=== PATIENT | female | born 1980 | race Caucasian/White ===

== ENCOUNTER 2017-01-27 20:33 | Emergency (ER) | payer OTHER ==
[~2017-01-27] VITALS: Ht 154.9 cm; Wt 81.8 kg
[~2017-01-27 20:33] MED LIST: CLIN300C3 PO; IBUP-2070 PO; INSLAN SQ; INSNOV SQ; LEVO200 PO; LIRA0.6P SQ; METF500T4 PO
[2017-01-27] MEDS ORDERED: LEVO200 PO (20:41)
[2017-01-27] MEDS ORDERED: INSNOV SQ (20:41)
[2017-01-27] MEDS ORDERED: INSLAN SQ (20:41)
[2017-01-27 20:47] LABS: GLUCOSE,POINT OF CARE 267 MG/DL (70-110)
[2017-01-27] MEDS ORDERED: ACETAMINOPHEN/CODEINE 300-30 MG TABLET PO ONE (21:00)
[2017-01-27 22:12] VITALS: BP 138/87
== END 2017-01-27 22:13 | disposition home or self-care (01) ==
LOC: EMS 20:34
DX: S93.401A Sprain of unspecified ligament of right ankle, initial encounter (principal); J45.909 Unspecified asthma, uncomplicated; E11.9 Type 2 diabetes mellitus without complications; E03.9 Hypothyroidism, unspecified; Z79.4 Long term (current) use of insulin; X50.0XXA Overexertion from strenuous movement or load, initial encounter; W01.0XXA Fall on same level from slipping, tripping and stumbling without subsequent striking against object, initial encounter; Y93.89 Activity, other specified; Y92.89 Other specified places as the place of occurrence of the external cause; Y99.8 Other external cause status
CPT/HCPCS: 29515; 82962; 99284

== ENCOUNTER 2017-02-22 18:24 | Emergency (ER) | payer MEDICAID, OTHER ==
[~2017-02-22] VITALS: Ht 154.9 cm; Wt 80.0 kg
[~2017-02-22 18:24] MED LIST changes: -CLIN300C3 PO; -IBUP-2070 PO
[2017-02-22 18:42] LABS: GLUCOSE,POINT OF CARE 273 MG/DL (70-110)
[2017-02-22 18:59] LABS: BASOPHILS % (AUTO) 0.6 % (0.0-2.0); EOSINOPHILS % (AUTO) 2.1 % (1.0-6.0); HEMATOCRIT 40.2 % (36-46); HEMOGLOBIN 13.7 g/dL (12.0-16.0); LYMPHOCYTES # (AUTO) 3.2 K/uL (1.0-4.8); LYMPHOCYTES % (AUTO) 31.6 % (22.0-44.0); MEAN CORPUSCULAR HEMOGLOBIN 28.2 pg (26.0-34.0); MEAN CORPUSCULAR HGB CONC 34.1 G/dL (31.0-37.0); MEAN CORPUSCULAR VOLUME 83 fL (80-100); MONOCYTES # (AUTO) 0.8 K/uL (0.1-1.0); MONOCYTES % (AUTO) 7.8 % (2.0-9.0); NEUTROPHILS # (AUTO) 5.9 K/uL (1.8-7.7); NEUTROPHILS % (AUTO) 57.9 % (40.0-70.0); PLATELET COUNT (AUTO) 232 K/uL (150-450); RED BLOOD CELL COUNT(AUTO) 4.86 MIL/uL (4.00-5.20); RED CELL DISTRIBUTION WIDTH 13.8 % (11.5-14.5); WHITE BLOOD COUNT (AUTO) 10.3 K/uL (4.5-11.0)
[2017-02-22 19:07] LABS: ANION GAP 9 mmol/L (8-16); CARBON DIOXIDE 27 mmol/L (22-29); CHLORIDE 100 mmol/L (98-107); CREATININE 0.75 mg/dL (0.60-1.30); GLOMERULAR FILTR. RATE CALC > 60 mL/min (>60); POTASSIUM 3.9 mmol/L (3.5-5.1); SODIUM SERUM 136 mmol/L (136-145); UREA NITROGEN, BLOOD 15 mg/dL (7-18)
[2017-02-22 19:13] LABS: ALANINE AMINOTRANSFERASE 18 U/L (12-78); ALBUMIN 3.3 g/dL (3.4-5.0); ASPARTATE AMINOTRANSFERASE 11 U/L (15-37); BILIRUBIN,TOTAL 0.2 mg/dL (0.1-1.0)
[2017-02-22 19:23] LABS: APPEARANCE,URINE TURBID (CLEAR); GLUCOSE, URINE (UA) >=1000 mg/dL (NEGATIVE); KETONES,URINE NEGATIVE (NEGATIVE); LEUKOCYTE ESTERASE ,URINE MODERATE (NEGATIVE); OCCULT BLOOD,URINE LARGE (NEGATIVE); PROTEIN,URINE SEE CONFIRM (NEGATIVE)
[2017-02-22] MEDS ORDERED: CEPHALEXIN MONOHYDRATE 500 MG CAPSULE PO ONE (19:30)
[2017-02-22] MEDS ORDERED: IBUPROFEN 600 MG TABLET PO ONE (19:30)
[2017-02-22] MEDS ORDERED: LEVO112T4 PO (19:30)
[2017-02-22] MEDS ORDERED: LEVO100 PO (19:30)
[2017-02-22 19:43] LABS: ADD UA MICROSCOPIC YES
[2017-02-22 19:44] LABS: SULFOSALICYLIC ACID,URINE 3+ (Negative)
[2017-02-22 19:45] LABS: WBC,URINE >100 /HPF (0-5)
[2017-02-22 19:46] LABS: SQUAMOUS EPITHELIAL CELL,UR Few /LPF (None Seen)
[2017-02-22 22:57] VITALS: BP 122/69
== END 2017-02-22 22:59 | disposition home or self-care (01) ==
LOC: EMS 18:25
DX: N39.0 Urinary tract infection, site not specified (principal); R81 Glycosuria; J45.909 Unspecified asthma, uncomplicated; E11.9 Type 2 diabetes mellitus without complications; E03.9 Hypothyroidism, unspecified; Z79.4 Long term (current) use of insulin
CPT/HCPCS: 74176; 82962; 87086; 99285

== ENCOUNTER 2017-08-05 19:35 | Emergency (ER) | payer MEDICAID, OTHER ==
[~2017-08-05] VITALS: Ht 154.9 cm; Wt 84.0 kg
[~2017-08-05 19:35] MED LIST changes: +LEVO100 PO; +LEVO112T4 PO; -LEVO200 PO; -METF500T4 PO; +METF500T6 PO
[2017-08-05] MEDS ORDERED: LISI-660 PO (19:48)
[2017-08-05 19:58] LABS: GLUCOSE,POINT OF CARE 225 MG/DL (70-110)
[2017-08-05] MEDS ORDERED: PERTUSS(ACELL),DIPH,TET VAC/PF 0.5 ML VIAL IM ONE (20:45)
[2017-08-05] MEDS ORDERED: BACITRACIN 0.9 GM PACKET OINTMENT TP ONE (20:45)
[2017-08-05 23:01] VITALS: BP 132/84
== END 2017-08-05 23:24 | disposition home or self-care (01) ==
LOC: EMS 19:36
DX: S93.401A Sprain of unspecified ligament of right ankle, initial encounter (principal); R03.0 Elevated blood-pressure reading, without diagnosis of hypertension; J45.909 Unspecified asthma, uncomplicated; E11.9 Type 2 diabetes mellitus without complications; E03.9 Hypothyroidism, unspecified; Z79.4 Long term (current) use of insulin; X58.XXXA Exposure to other specified factors, initial encounter; Y93.01 Activity, walking, marching and hiking; Y92.89 Other specified places as the place of occurrence of the external cause; Y99.8 Other external cause status
CPT/HCPCS: 90471; 90715; 99284

== ENCOUNTER 2021-02-11 16:28 | Emergency (ER) | payer OTHER ==
[~2021-02-11] VITALS: Ht 154.9 cm; Wt 75.0 kg
[~2021-02-11 16:28] MED LIST changes: +CIPR-278 PO; +DULA3PEN SQ; -LEVO100 PO; -LIRA0.6P SQ; +LISI-893 PO; +METF-1211 PO; -METF500T6 PO; +METR500 PO; +PROP10TA73 PO
[2021-02-11 17:40] LABS: BASOPHILS % (AUTO) 0.8 % (0.0-2.0); EOSINOPHILS % (AUTO) 2.8 % (1.0-6.0); HEMATOCRIT 40.2 % (36-46); HEMOGLOBIN 13.9 g/dL (12.0-16.0); LYMPHOCYTES # (AUTO) 2.8 K/uL (1.0-4.8); LYMPHOCYTES % (AUTO) 32.8 % (22.0-44.0); MEAN CORPUSCULAR HEMOGLOBIN 28.9 pg (26.0-34.0); MEAN CORPUSCULAR HGB CONC 34.5 G/dL (31.0-37.0); MEAN CORPUSCULAR VOLUME 84 fL (80-100); MONOCYTES # (AUTO) 0.6 K/uL (0.1-1.0); MONOCYTES % (AUTO) 6.6 % (2.0-9.0); NEUTROPHILS # (AUTO) 4.9 K/uL (1.8-7.7); PLATELET COUNT (AUTO) 244 K/uL (150-450); RED BLOOD CELL COUNT(AUTO) 4.79 MIL/uL (4.00-5.20); RED CELL DISTRIBUTION WIDTH 13.5 % (11.5-14.5)
[2021-02-11] MEDS ORDERED: IPRATROPIUM BROMIDE 0.5 MG/2.5 ML NEB SOLUTION NEB ONE (17:45)
[2021-02-11] MEDS ORDERED: ALBUTEROL SULFATE 2.5 MG/0.5 ML NEB SOLUTION NEB ONE (17:45)
[2021-02-11 17:52] LABS: INR 0.9 (0.9-1.1); PROTHROMBIN TIME 9.7 SEC (9.4-11.6)
[2021-02-11 17:54] LABS: ALANINE AMINOTRANSFERASE 21 U/L (12-78); ALBUMIN 3.1 g/dL (3.4-5.0); ALKALINE PHOSPHATASE 153 U/L (46-116); ANION GAP 12 mmol/L (8-16); ASPARTATE AMINOTRANSFERASE 12 U/L (15-37); BILIRUBIN,TOTAL 0.2 mg/dL (0.1-1.0); CALCIUM, TOTAL 8.4 mg/dL (8.8-10.5); CARBON DIOXIDE 24 mmol/L (22-29); CHLORIDE 102 mmol/L (98-107); CREATININE 0.88 mg/dL (0.60-1.30); GLOMERULAR FILTR. RATE CALC > 60 mL/min (>60); POTASSIUM 3.9 mmol/L (3.5-5.1); SODIUM SERUM 138 mmol/L (136-145); TOTAL PROTEIN, SERUM 7.4 g/dL (6.4-8.2); UREA NITROGEN, BLOOD 16 mg/dL (7-18)
[2021-02-11 17:55] LABS: GLUCOSE,RANDOM 408 mg/dL (70-110)
[2021-02-11 18:01] LABS: B-TYPE NATRIURETIC PEPTIDE 10 pg/mL (0-100)
[2021-02-11] MEDS ORDERED: SODIUM CHLORIDE 0.9% 1,000 ML IV ONE (18:45)
[2021-02-11] MEDS ORDERED: INSULIN REGULAR, HUMAN 100 UNITS/ML IVP ONE (18:45)
[2021-02-11] MEDS ORDERED: ASPIRIN 81 MG CHEWABLE TABLET PO ONE (19:45)
[2021-02-11 19:47] LABS: COVID AG,FIA SOURCE NASOPHARYNGEAL
[2021-02-11 19:57] LABS: GLUCOMETER DEV NAME(LOC) ERT.5; GLUCOSE,POINT OF CARE 254 MG/DL (70-110)
[2021-02-11 20:38] VITALS: BP 125/79
== END 2021-02-11 20:38 | disposition home or self-care (01) ==
LOC: EMS 16:28
DX: J45.901 Unspecified asthma with (acute) exacerbation (principal); E11.65 Type 2 diabetes mellitus with hyperglycemia; I10 Essential (primary) hypertension; E03.9 Hypothyroidism, unspecified; Z20.822 Contact with and (suspected) exposure to COVID-19; Z85.850 Personal history of malignant neoplasm of thyroid; Z79.4 Long term (current) use of insulin; Z79.84 Long term (current) use of oral hypoglycemic drugs
CPT/HCPCS: 36415; 71045; 80053; 82962; 83880; 84484; 85025; 85610; 85730; 87426; 93005; 94060; 94640; 96361; 96374; 99285; J1815; J7030; J7613

== ENCOUNTER 2021-03-27 21:08 | Emergency (ER) | payer OTHER ==
[~2021-03-27] VITALS: Ht 160 cm; Wt 79.1 kg
[2021-03-27 21:42] VITALS: BP 114/74
[2021-03-27] MEDS ORDERED: INSLAN SQ (22:10)
[2021-03-27 22:50] LABS: COVID AG,FIA SOURCE NASOPHARYNGEAL
[2021-03-27] MEDS ORDERED: GuaiFENesin/D-METHORPHAN [SUGAR-FREE] 200-20MG/10 ML SYRUP UDCUP PO ONE (23:30)
[2021-03-27] MEDS ORDERED: IBUPROFEN 600 MG TABLET PO ONE (23:30)
== END 2021-03-28 00:12 | disposition home or self-care (01) ==
LOC: EMS 21:28
DX: U07.1 COVID-19 (principal); E11.8 Type 2 diabetes mellitus with unspecified complications; I10 Essential (primary) hypertension; E03.9 Hypothyroidism, unspecified; Z90.49 Acquired absence of other specified parts of digestive tract; Z90.89 Acquired absence of other organs; Z90.710 Acquired absence of both cervix and uterus; Z98.51 Tubal ligation status; Z79.4 Long term (current) use of insulin; Z79.84 Long term (current) use of oral hypoglycemic drugs
CPT/HCPCS: 87426; 99283; U0003

== ENCOUNTER 2021-03-31 08:35 | Emergency (ER) | payer OTHER ==
[~2021-03-31] VITALS: Ht 154.9 cm; Wt 74.5 kg
[2021-03-31] MEDS ORDERED: ACETAMINOPHEN 500 MG TABLET PO ONE (10:00)
[2021-03-31] MEDS ORDERED: KETOROLAC TROMETHAMINE 30 MG/ML VIAL IM ONE (10:00)
[2021-03-31] MEDS ORDERED: AZITHROMYCIN 500 MG TABLET PO ONE (10:30)
[2021-03-31 11:06] LABS: BASOPHILS % (AUTO) 0.5 % (0.0-2.0); EOSINOPHILS % (AUTO) 3.1 % (1.0-6.0); HEMOGLOBIN 13.8 g/dL (12.0-16.0); LYMPHOCYTES # (AUTO) 2.1 K/uL (1.0-4.8); LYMPHOCYTES % (AUTO) 41.3 % (22.0-44.0); MEAN CORPUSCULAR HEMOGLOBIN 28.5 pg (26.0-34.0); MEAN CORPUSCULAR HGB CONC 34.4 G/dL (31.0-37.0); MEAN CORPUSCULAR VOLUME 83 fL (80-100); MONOCYTES # (AUTO) 0.4 K/uL (0.1-1.0); MONOCYTES % (AUTO) 7.7 % (2.0-9.0); NEUTROPHILS # (AUTO) 2.4 K/uL (1.8-7.7); NEUTROPHILS % (AUTO) 47.4 % (40.0-70.0); PLATELET COUNT (AUTO) 193 K/uL (150-450); RED BLOOD CELL COUNT(AUTO) 4.83 MIL/uL (4.00-5.20); RED CELL DISTRIBUTION WIDTH 13.6 % (11.5-14.5)
[2021-03-31 11:13] LABS: ANION GAP 11 mmol/L (8-16); CALCIUM, TOTAL 8.6 mg/dL (8.8-10.5); CARBON DIOXIDE 25 mmol/L (22-29); CHLORIDE 102 mmol/L (98-107); CREATININE 0.54 mg/dL (0.60-1.30); GLOMERULAR FILTR. RATE CALC > 60 mL/min (>60); GLUCOSE,RANDOM 282 mg/dL (70-110); POTASSIUM 4.1 mmol/L (3.5-5.1); SODIUM SERUM 138 mmol/L (136-145); UREA NITROGEN, BLOOD 19 mg/dL (7-18)
[2021-03-31 11:26] LABS: ALANINE AMINOTRANSFERASE 26 U/L (12-78); ALBUMIN 3.2 g/dL (3.4-5.0); ALKALINE PHOSPHATASE 126 U/L (46-116); ASPARTATE AMINOTRANSFERASE 10 U/L (15-37); B-TYPE NATRIURETIC PEPTIDE < 5 pg/mL (0-100); BILIRUBIN,TOTAL 0.2 mg/dL (0.1-1.0); CREATINE KINASE, TOTAL ONLY 34 U/L (26-192); HCG,QUANTITATIVE < 1 mIU/mL (0-6); TOTAL PROTEIN, SERUM 7.6 g/dL (6.4-8.2)
[2021-03-31 12:12] VITALS: BP 115/76
== END 2021-03-31 12:17 | disposition home or self-care (01) ==
LOC: EMS 08:37
DX: R07.89 Other chest pain (principal); E11.9 Type 2 diabetes mellitus without complications; I10 Essential (primary) hypertension; Z79.4 Long term (current) use of insulin; Z79.84 Long term (current) use of oral hypoglycemic drugs
CPT/HCPCS: 36415; 71045; 80053; 82550; 83880; 84484; 84702; 85025; 96372; 99284; J1885; Q9967

== ENCOUNTER 2021-08-08 22:50 | Emergency (ER) | payer OTHER ==
[~2021-08-08] VITALS: Ht 154.9 cm; Wt 72.7 kg
[2021-08-08 23:22] LABS: BASOPHILS % (AUTO) 0.7 % (0.0-2.0); EOSINOPHILS % (AUTO) 2.5 % (1.0-6.0); HEMOGLOBIN 13.3 g/dL (12.0-16.0); LYMPHOCYTES # (AUTO) 2.8 K/uL (1.0-4.8); LYMPHOCYTES % (AUTO) 35.7 % (22.0-44.0); MEAN CORPUSCULAR HEMOGLOBIN 26.8 pg (26.0-34.0); MEAN CORPUSCULAR HGB CONC 33.3 G/dL (31.0-37.0); MEAN CORPUSCULAR VOLUME 81 fL (80-100); MONOCYTES # (AUTO) 0.5 K/uL (0.1-1.0); NEUTROPHILS # (AUTO) 4.4 K/uL (1.8-7.7); NEUTROPHILS % (AUTO) 55.1 % (40.0-70.0); PLATELET COUNT (AUTO) 222 K/uL (150-450); RED BLOOD CELL COUNT(AUTO) 4.97 MIL/uL (4.00-5.20); RED CELL DISTRIBUTION WIDTH 14.1 % (11.5-14.5)
[2021-08-08 23:32] LABS: ANION GAP 8 mmol/L (8-16); CALCIUM, TOTAL 9.2 mg/dL (8.8-10.5); CARBON DIOXIDE 28 mmol/L (22-29); CHLORIDE 100 mmol/L (98-107); CREATININE 0.54 mg/dL (0.60-1.30); GLUCOSE,RANDOM 314 mg/dL (70-110); POTASSIUM 3.8 mmol/L (3.5-5.1); SODIUM SERUM 136 mmol/L (136-145); UREA NITROGEN, BLOOD 12 mg/dL (7-18)
[2021-08-08 23:35] LABS: GLOMERULAR FILTR. RATE CALC > 60 mL/min (>60)
[2021-08-08 23:39] LABS: ALANINE AMINOTRANSFERASE 23 U/L (12-78); ALBUMIN 3.1 g/dL (3.4-5.0); ALKALINE PHOSPHATASE 145 U/L (46-116); ASPARTATE AMINOTRANSFERASE 11 U/L (15-37); BILIRUBIN,TOTAL 0.3 mg/dL (0.1-1.0); TOTAL PROTEIN, SERUM 7.5 g/dL (6.4-8.2)
[2021-08-09] MEDS ORDERED: ACETAMINOPHEN 500 MG TABLET PO ONE (00:15)
[2021-08-09 00:30] VITALS: BP 120/77
== END 2021-08-09 00:44 | disposition home or self-care (01) ==
LOC: EMS 22:53
DX: R07.89 Other chest pain (principal); R00.2 Palpitations; R51.9 Headache, unspecified; I10 Essential (primary) hypertension; E11.9 Type 2 diabetes mellitus without complications; Z79.4 Long term (current) use of insulin; Z79.899 Other long term (current) drug therapy
CPT/HCPCS: 71045; 80053; 84484; 85025; 93005; 99285; 36415-L1; 36415-TC

== ENCOUNTER 2022-07-04 18:51 | Emergency (ER) | payer OTHER ==
[~2022-07-04] VITALS: Ht 160 cm; Wt 77.3 kg
[2022-07-04] MEDS ORDERED: LEVO75 PO (19:01)
[2022-07-04] MEDS ORDERED: LISI20TA24 PO (19:01)
[2022-07-04] MEDS ORDERED: ICOS1CAP2 PO (19:01)
[2022-07-04] MEDS ORDERED: ROSU20TA73 PO (19:01)
[2022-07-04] MEDS ORDERED: DAPA10TA PO (19:01)
[2022-07-04] MEDS ORDERED: METO75TA PO (19:01)
[2022-07-04 19:06] VITALS: BP 127/78
== END 2022-07-04 21:52 | disposition left against medical advice (07) ==
LOC: EMS 19:07
DX: R07.9 Chest pain, unspecified (principal); R51.9 Headache, unspecified; Z53.21 Procedure and treatment not carried out due to patient leaving prior to being seen by health care provider
CPT/HCPCS: 82962; 93005; 99281

== ENCOUNTER 2022-12-15 23:20 | Emergency (ER) | payer OTHER ==
[~2022-12-15] VITALS: Ht 154.9 cm; Wt 81.8 kg
[~2022-12-15 23:20] MED LIST changes: -CIPR-278 PO; +DAPA10TA PO; +ICOS1CAP2 PO; -LEVO112T4 PO; +LEVO75 PO; -LISI-893 PO; +LISI20TA24 PO; +METO75TA PO; -METR500 PO; -PROP10TA73 PO; +ROSU20TA73 PO
[2022-12-15 23:29] VITALS: TEMP 98.2
[2022-12-15 23:38] LABS: COVID AG,FIA SOURCE NASAL SWAB
[2022-12-15 23:58] LABS: INFLUENZA TYPE A NEGATIVE FOR TYPE A (NEGATIVE); INFLUENZA TYPE B NEGATIVE FOR TYPE B (NEGATIVE)
[2022-12-16 00:09] LABS: SARS-COV2 (COVID) ANTIGEN,FIA Positive (Negative)
[2022-12-16] MEDS ORDERED: 0.9% SODIUM CHLORIDE 10 ML SYRINGE IVP PRN (00:30)
[2022-12-16 01:42] LABS: BASOPHILS % (AUTO) 0.6 % (0.0-2.0); EOSINOPHILS % (AUTO) 3.1 % (1.0-6.0); HEMATOCRIT 40.6 % (36-46); HEMOGLOBIN 13.3 g/dL (12.0-16.0); LYMPHOCYTES # (AUTO) 2.5 K/uL (1.0-4.8); LYMPHOCYTES % (AUTO) 29.8 % (22.0-44.0); MEAN CORPUSCULAR HEMOGLOBIN 25.6 pg (26.0-34.0); MEAN CORPUSCULAR HGB CONC 32.8 G/dL (31.0-37.0); MEAN CORPUSCULAR VOLUME 78 fL (80-100); MONOCYTES # (AUTO) 0.6 K/uL (0.1-1.0); MONOCYTES % (AUTO) 7.6 % (2.0-9.0); NEUTROPHILS % (AUTO) 58.9 % (40.0-70.0); PLATELET COUNT (AUTO) 218 K/uL (150-450); RED CELL DISTRIBUTION WIDTH 15.7 % (11.5-14.5); WHITE BLOOD COUNT (AUTO) 8.6 K/uL (4.5-11.0)
[2022-12-16 01:46] LABS: ANION GAP 9 mmol/L (8-16); CALCIUM, TOTAL 9.1 mg/dL (8.8-10.5); CARBON DIOXIDE 27 mmol/L (22-29); CHLORIDE 100 mmol/L (98-107); GLOMERULAR FILTR. RATE CALC > 60 mL/min (>60); GLUCOSE,RANDOM 298 mg/dL (70-110); POTASSIUM 3.5 mmol/L (3.5-5.1); SODIUM SERUM 136 mmol/L (136-145); UREA NITROGEN, BLOOD 14 mg/dL (7-18)
[2022-12-16 01:53] LABS: TROPONIN I-HIGH SENSITIVITY 4 ng/L (<51)
[2022-12-16 02:04] LABS: ALANINE AMINOTRANSFERASE 31 U/L (12-78); ALBUMIN 3.2 g/dL (3.4-5.0); ALKALINE PHOSPHATASE 151 U/L (46-116); ASPARTATE AMINOTRANSFERASE 13 U/L (15-37); BILIRUBIN,TOTAL 0.3 mg/dL (0.1-1.0); C-REACTIVE PROTEIN QUANT 4.46 mg/dL (0.00-0.30); CREATINE KINASE, TOTAL ONLY 31 U/L (26-192); FERRITIN 33 ng/mL (8-252); TOTAL PROTEIN, SERUM 7.5 g/dL (6.4-8.2)
[2022-12-16 02:07] LABS: B-TYPE NATRIURETIC PEPTIDE < 5 pg/mL (0-100); INR 0.9 (0.9-1.1); PROTHROMBIN TIME 9.9 SEC (9.4-11.6)
[2022-12-16 02:10] LABS: LACTIC ACID 2.1 mmol/L (0.4-2.0)
[2022-12-16] MEDS ORDERED: NIRM1TAB4 PO (02:20)
[2022-12-16 02:45] LABS: D-DIMER 0.42 mg/L FEU (0.00-0.50)
[2022-12-16 03:21] VITALS: BP 124/78; PULSE 102; RESP 18
== END 2022-12-16 03:22 | disposition home or self-care (01) ==
LOC: EMS 23:22
DX: U07.1 COVID-19 (principal); I10 Essential (primary) hypertension; E11.9 Type 2 diabetes mellitus without complications; J45.909 Unspecified asthma, uncomplicated; Z90.49 Acquired absence of other specified parts of digestive tract; Z79.84 Long term (current) use of oral hypoglycemic drugs; Z79.899 Other long term (current) drug therapy
CPT/HCPCS: 71045; 80053; 82550; 82728; 83605; 83880; 84145; 84484; 85025; 85379; 85610; 85730; 86140; 87040; 87804; 93005; 99285; 36415-L1; 36415-TC

== ENCOUNTER 2024-09-22 14:33 | Emergency (ER) | payer OTHER ==
[~2024-09-22] VITALS: Ht 157.5 cm; Wt 84.1 kg
[~2024-09-22 14:33] MED LIST changes: +NIRM1TAB4 PO; -ROSU20TA73 PO; +ROSU20TA98 PO
[2024-09-22] MEDS ORDERED: LEVO25TA9 PO (14:42)
[2024-09-22] MEDS ORDERED: EVOL140P3 SQ (14:42)
[2024-09-22] MEDS ORDERED: CHOL200074 PO (14:42)
[2024-09-22] MEDS ORDERED: GABA-1181 PO (14:42)
[2024-09-22] MEDS ORDERED: SEMA2PEN SQ (14:42)
[2024-09-22] MEDS ORDERED: TELM40TA8 PO (14:42)
[2024-09-22] MEDS ORDERED: INSU100V50 SQ (14:42)
[2024-09-22] MEDS ORDERED: MAGN400T25 PO (14:42)
[2024-09-22] MEDS ORDERED: INSU100V42 SQ (14:42)
[2024-09-22] MEDS ORDERED: LOSA-382 PO (14:42)
[2024-09-22 15:06] LABS: PLATELET COUNT (AUTO) 187 K/uL (150-450); RED BLOOD CELL COUNT(AUTO) 4.35 MIL/uL (4.00-5.20); RED CELL DISTRIBUTION WIDTH 14.6 % (11.5-14.5); WHITE BLOOD COUNT (AUTO) 5.8 K/uL (4.5-11.0)
[2024-09-22] MEDS: SODIUM CHLORIDE 0.9% 1,000 ML IV ONE (15:13)
[2024-09-22 15:16] LABS: CALCIUM, TOTAL 8.6 mg/dL (8.8-10.5); CREATININE 0.61 mg/dL (0.60-1.30); GLOMERULAR FILTR. RATE CALC > 60 mL/min (>60); GLUCOSE,RANDOM 146 mg/dL (70-110); SODIUM SERUM 140 mmol/L (136-145); UREA NITROGEN, BLOOD 16 mg/dL (7-18)
[2024-09-22] MEDS: ONDANSETRON HCL 4 MG/2 ML VIAL IVP ONE (15:16)
[2024-09-22] MEDS: KETOROLAC TROMETHAMINE 30 MG/ML VIAL IVP ONE (15:16)
[2024-09-22] MEDS: FAMOTIDINE 20 MG/2 ML VIAL IVP ONE (15:17)
[2024-09-22 15:22] LABS: ASPARTATE AMINOTRANSFERASE 27.0 U/L (15-37); TOTAL PROTEIN, SERUM 7.3 g/dL (6.4-8.2)
[2024-09-22 15:39] LABS: COVID AG,FIA SOURCE NASAL SWAB
[2024-09-22 16:02] LABS: INFLUENZA TYPE A NEGATIVE FOR TYPE A (NEGATIVE); INFLUENZA TYPE B NEGATIVE FOR TYPE B (NEGATIVE); SARS-COV2 (COVID) ANTIGEN,FIA Negative (Negative)
[2024-09-22 16:15] LABS: APPEARANCE,URINE HAZY (CLEAR); GLUCOSE, URINE (UA) NEGATIVE (NEGATIVE); LEUKOCYTE ESTERASE ,URINE NEGATIVE (NEGATIVE); NITRATE,URINE NEGATIVE (NEGATIVE); OCCULT BLOOD,URINE NEGATIVE (NEGATIVE); SPECIFIC GRAVITIY, URINE 1.022 (1.003-1.030)
[2024-09-22] MEDS ORDERED: IOHEXOL 350 MG/ML 100 ML VIAL ONE (16:16)
[2024-09-22] MEDS ORDERED: SODIUM CHLORIDE 0.9% 100 ML ONE (16:16)
[2024-09-22] MEDS ORDERED: 0.9% SODIUM CHLORIDE 10 ML SYRINGE IVP ONE (16:16)
[2024-09-22 19:02] VITALS: TEMP 98.4
[2024-09-22] MEDS ORDERED: ONDA-104 PO (19:46)
[2024-09-22 19:50] VITALS: BP 131/80; PULSE 80; RESP 16; O2SAT 97
== END 2024-09-22 20:20 | disposition home or self-care (01) ==
LOC: EMS 14:33
DX: K52.9 Noninfective gastroenteritis and colitis, unspecified (principal); I10 Essential (primary) hypertension; J45.909 Unspecified asthma, uncomplicated; I25.10 Atherosclerotic heart disease of native coronary artery without angina pectoris; Z79.4 Long term (current) use of insulin; Z79.85 Long-term (current) use of injectable non-insulin antidiabetic drugs; Z85.850 Personal history of malignant neoplasm of thyroid; Z87.440 Personal history of urinary (tract) infections; Z90.49 Acquired absence of other specified parts of digestive tract; Z90.710 Acquired absence of both cervix and uterus; Z79.899 Other long term (current) drug therapy; Z20.822 Contact with and (suspected) exposure to COVID-19
CPT/HCPCS: 99285; 74177; 96374; 96375; 96361; 87426; 80048; 80076; 81003; 83690; 84703; 85025; 87804; 36415; 82962; J1885; Q9967; J3490; J2405; J7030; J7050